=== PATIENT | male | born 1935 | race African-American/Black ===

== ENCOUNTER 2019-06-17 01:55 | Emergency (ER) | payer OTHER ==
[~2019-06-17] VITALS: Ht 172.7 cm; Wt 70.0 kg
[~2019-06-17 01:55] MED LIST: CARV3.1242 PO; FURO40TA5 PO; ISOS60TA4 PO; PANT40TA4 PO; PENTOXIFYLLINE PO; RANO500T3 PO; TAMS0.4C31 PO
[2019-06-17] MEDS ORDERED: ATROPINE SULFATE 1MG/10ML SYR ONE (02:18)
[2019-06-17] MEDS ORDERED: VECURONIUM BROMIDE 10 MG/VIAL IV ONE (02:18)
[2019-06-17] MEDS ORDERED: ETOMIDATE 2MG/ML 10ML VIAL IV ONE (02:18)
[2019-06-17] MEDS ORDERED: SUCCINYLCHOLINE CHLORIDE 200MG/10ML IV ONE (02:18)
[2019-06-17] MEDS ORDERED: MIDAZOLAM HCL 50 MG in DEXTROSE 5% WATER 40 ML IV ONE (02:30)
[2019-06-17] MEDS ORDERED: LEVETIRACETAM 500MG PREMIX 100 ML IV ONE (02:30)
[2019-06-17] MEDS ORDERED: ONDANSETRON HCL 4MG/2ML INJ IV STA (02:30)
[2019-06-17] MEDS ORDERED: DEXAMETHASONE 10 MG/ML VIAL IV ONE (03:00)
[2019-06-17] MEDS ORDERED: NICARDIPINE 100 MG in SODIUM CHLORIDE 0.9% 60 ML IV ONE (03:00)
[2019-06-17 03:09] LABS: BASOPHILS % 0.2 % (0.0-2.0); EOSINOPHILS % 0.2 % (0.0-5.0); HEMATOCRIT. 42.7 % (42.0-52.0); MEAN CORPUSCULAR VOLUME 88.1 fL (80.0-94.0); MEAN PLATELET VOLUME 9.2 fl (7.4-10.4); MONOCYTES % 10.7 % (2.0-8.0); NEUTROPHILS % 80.9 % (40.0-76.0); PLATELET 214 x1000/uL (130-400); RED BLOOD CELL COUNT 4.85 mill/uL (4.7-6.1); RED CELL DISTRIBUTION WIDTH 17.7 % (11.6-14.6)
[2019-06-17 03:13] LABS: CHLORIDE 96 mEq/L (98-107)
[2019-06-17 03:24] LABS: BG BASE EXCESS -0.2 mmol/L (-2.0-2.0); BG DEOXYHEMOGLOBIN 0.4 % (0.0-5.0); BG FRACTION INSPIRED OXYGEN 100; BG HCO3 ACT 24.1 mmol/L (22.0-26.0); BG METHEMOGLOBIN 0.3 % (0.0-1.5); BG OXYGEN SATURATION 99.6 % (92.0-98.5); BG OXYHEMOGLOBIN 98.3 % (94.0-97.0); BG PCO2 38.1 mmHg (35.0-45.0); BG PH 7.419 (7.350-7.450); BG SAMPLE SITE RIGHT RADIAL; BG TIDAL VOLUME(mL) 400 mL; BG TOTAL HEMOGLOBIN 12.5 g/dL (12.0-18.0); BG VENT MODE VENT - A/C; BG VENT RATE 14 set
[2019-06-17] MEDS ORDERED: HUMAN PROTHROMBIN COMPLX (PCC) 500 UNITS VIAL IV NR (03:45)
[2019-06-17 04:19] LABS: INR 4.1
[2019-06-17 05:07] VITALS: BP 151/84
== END 2019-06-17 05:13 | disposition short-term general hospital (02) ==
LOC: ER 01:55 → CANBEDREQ 05:59
DX: I60.9 Nontraumatic subarachnoid hemorrhage, unspecified (principal); J96.90 Respiratory failure, unspecified, unspecified whether with hypoxia or hypercapnia; G40.909 Epilepsy, unspecified, not intractable, without status epilepticus; I12.0 Hypertensive chronic kidney disease with stage 5 chronic kidney disease or end stage renal disease; N18.6 End stage renal disease; Z99.2 Dependence on renal dialysis
CPT/HCPCS: 31500; 36415; 36430; 36600; 70450; 71045; 80053; 82375; 82805; 83605; 84484; 85025; 85610; 86850; 86900; 86901; 86927; 93005; 94002; 96365; 96366; 96368; 96375; 99291; C9132; J0330; J0461; J1100; J1953; J2250; J2405; J3490; J7040; J7050; J7060; P9017; A4315